=== PATIENT | male | born 2005 | race African-American/Black ===

== ENCOUNTER → 2023-05-05 | Outpatient (CLI) | payer OTHER | LOC: M SOG 07:53 | PROVIDERS: ATTEND Physician Assistant | DX: M79.645 Pain in left finger(s) (principal) ==

== ENCOUNTER → 2023-06-09 | Outpatient (CLI) | payer OTHER | LOC: M SOG 09:08 | PROVIDERS: ATTEND Physician Assistant | DX: M79.645 Pain in left finger(s) (principal) ==